=== PATIENT | female | born 1995 | race Caucasian/White ===

== ENCOUNTER 2017-11-19 06:03 | Inpatient (IN) ==
[2017-11-19] MEDS ORDERED: Famotidine 20 MG/2 ML VIAL IVP PRN (06:10)
[2017-11-19] MEDS ORDERED: Metoclopramide 10 MG/2 ML VIAL IVP PRN ×2 (06:10→11:18)
[2017-11-19] MEDS ORDERED: Naloxone 0.4 MG/ML INJ IVP PRN (06:10)
[2017-11-19] MEDS ORDERED: Ringers Solution, Lactated 1,000 ML IVC SCH ×2 (06:15→08:15)
[2017-11-19 06:41] LABS: Basophils % 0.3 %; Eosinophils # 0.1 K/mcL (0.0-0.6); Eosinophils % 0.5 %; Hemoglobin 11.8 g/dL (11.5-15.4); Lymphocytes # 2.1 K/mcL (0.6-4.6); Lymphocytes % 18.1 %; Mean Corpuscular HGB Conc 32.8 g/dL (31.6-35.5); Mean Corpuscular Hemoglobin 26.8 pg (28.0-33.3); Mean Corpuscular Volume 81.8 fL (83.0-100.0); Mean Platelet Volume 9.3 fL (9.4-12.4); Monocytes # 0.7 K/mcL (0.0-1.3); Monocytes % 5.5 %; Neutrophils # 8.8 K/mcL (1.6-8.9); Platelet Count 291 K/mcL (140-400); Segmented Neutrophils % 74.6 %
[2017-11-19] MEDS ORDERED: Oxytocin 20 units/ LR 1000 mL 20 UNIT/1,000 ML BAG IVC ONE (07:17)
[2017-11-19] MEDS ORDERED: *HR* FentaNYL (PF) 100 MCG/2 ML VIAL ONE (07:23)
[2017-11-19] MEDS ORDERED: Morphine Sulfate/PF 5mg/10mL Vial ONE (07:23)
[2017-11-19] MEDS ORDERED: EPHEDrine 50 MG/ML VIAL ONE (07:23)
[2017-11-19] MEDS ORDERED: Ondansetron 4 MG/2 ML VIAL ONE (07:24)
[2017-11-19] MEDS ORDERED: *HR* Oxytocin 10 UNIT/ML VIAL IM ONE (07:24)
[2017-11-19] MEDS ORDERED: Water for inj. (sterile) 10 ML IV ONE (07:25)
--- NOTE | 2017-11-19 07:27 | OB/GYN History & Physical ---
Date of Encounter: 11/19/17 Time of Encounter: 07:24 Assessment and Plan (1) with 39 completed weeks gestation Current visit: Yes Status: Chronic (2) Status post delivery Current visit: Yes Status: Acute Risks, benefits, and alternatives of repeat . Informed consent was obtained in the office last week. She has no followup questions today. History of Present Illness Chief complaint: patient is here for repeat section HPI: Ms. Harris is a 22 year old female G2 P 1-0-0-1 at 39 2/7 weeks presents for repeat section. She denies any contractions, vaginal bleeding or leaking fluid. She reports good movements this weekend. Her has been uncomplicated. Her first was done for failure to progress and category 2 FHR tracing. Past Med Surg Social Fam HX - Past Medical History Source: patient Medical history: migraine Psychiatric history: no psych history - Past Surgical History Surgical History: breast surgery (benign fibroadenoma removed), Additional surgical history: tumor left breast 2009 - Social History Smoking Status: Never smoker Smokeless Tobacco Status: No Alcohol use: none Drug use: none - Family History Father Family Member Ethnicity: Non- Living Status: Still Living Hx Family Medical Disorders: Yes (HTN) Mother Family Member Ethnicity: Non- Living Status: Still Living Hx Family Cardiac Disorders: No Hx Family Respiratory Disorders: No Hx Family Cancer: No Hx Family GI Disorders: No Hx Family Endocrine Disorder: No Hx Family Neuromuscular Disorders: No Hx Family Neurologic Disorders: No Hx Family HEENT Disorders: No Hx Family Autoimmune Disorders: No Obstetrical History - Pregnancies : 2 Para: 1 Livin Medications and Allergies Folic Acid 1 tab PO DAILY 11/19/17 [History] 3 Allergy/AdvReac Type Severity Reaction Status Date / Time No Known Allergies Allergy Verified 11/19/17 06:59 Review of System OB All systems PM: reviewed and no additional remarkable complaints except as stated Exam - Vital Signs Vital signs: Initial Vital Signs Temp Pulse Resp BP 98.8 F 98 16 119/70 11/19/17 06:40 11/19/17 06:40 11/19/17 06:40 11/19/17 06:40 - Constitutional Constitutional: well developed, well nourished, no acute distress, average body habitus - HEENT HEENT: EOMI - Lungs Respiratory exam: CTAB - Cardiovascular Cardiovascular exam: RRR - Abdomen Abdomen: Present: bowel sounds normal, gravid, non tender Results Result Diagrams: 11/19/17 06:12 Abnormal lab results WBC 11.8 K/mcL (4.3-11.1) H 11/19/17 06:12 MCV 81.8 fL (83.0-100.0) L 11/19/17 06:12 MCH 26.8 pg (28.0-33.3) L 11/19/17 06:12 RDW 15.0 % (11.5-14.5) H 11/19/17 06:12 MPV 9.3 fL (9.4-12.4) L 11/19/17 06:12 All other labs normal.
[2017-11-19] MEDS ORDERED: Lidocaine -MPF 1% 5 ML AMPUL ONE (07:41)
--- NOTE | 2017-11-19 07:48 | Anesthesia Evaluation PreOp ---
Date of Encounter: 11/19/17 Time of Encounter: 07:46 - Past History Planned Operation: Repeat C/S Cardiac History: Denies any Significant Hx Pulmonary History: Denies Any Significant HX AVIATION CONSULTANT History: Denies Any Significant HX Other Medical History: Denies Any Significant HX Anesthesia History: No Prior Anesthetic Complications, Past Anesthesia : Yes Alcohol Use: none Drug use: none Medications and Allergies Folic Acid 1 tab PO DAILY 11/19/17 [History] 3 Allergy/AdvReac Type Severity Reaction Status Date / Time No Known Allergies Allergy Verified 11/19/17 06:59 - Meds/Allergy Pre-op Review Medications Reviewed: Yes Allergies Reviewed: Yes Beta Blockers on Current Med List: No Anesthesia Results - Labs 11/19/17 06:12 Anesthesia Exam O2 Sat Height 1.65 m Weight 89.993 kg Vital Signs Temp Pulse Resp BP 98.8 F 98 16 119/70 11/19/17 06:40 11/19/17 06:40 11/19/17 06:40 11/19/17 06:40 NPO (# of Hours): 8 Pain Scale: 0 Pain Scale Used: Numeric (1 - 10) - HEENT Pupil (Motor): Pupils equal - AVIATION CONSULTANT LOC: Oriented AVIATION CONSULTANT Motor: Normal RUE, Normal LUE, Normal RLE, Normal LLE, Normal Face AVIATION CONSULTANT Sensory: Normal: RUE, LUE, RLE, LLE, Face - Cardiac Rhythm: Regular Murmur: None JVD: No Carotid Bruit: No - Pulmonary Breath Sounds: bilateral Clear Respiratory Effort: Symmetrical Anesthesia Assess/Plan ASA Score: 2 Modified [place] Scale for Level of Consciousness: Cooperative, oriented, and tranquil Anesthetic Plan: Regional Autologous Blood: Yes Monitoring Plan: Standard Monitors Recovery Plan: PACU
[2017-11-19 08:05] LABS: Amphetamine Screen,Urine Negative ng/mL (Cutoff=1000); Barbiturate Screen,Urine Negative ng/mL (Cutoff=200); Benzodiazepines Screen,Urine Negative ng/mL (Cutoff=200); Cannabinoid Screen,Urine Negative ng/mL (Cutoff = 50); Cocaine Screen,Urine Negative ng/mL (Cutoff= 300); Opiate Screen,Urine Negative ng/mL (Cutoff=300); Phencyclidine Screen,Urine Negative ng/mL (Cutoff=25)
[2017-11-19] MEDS ORDERED: Ondansetron 4 MG/2 ML VIAL IVP ONE (08:06)
[2017-11-19] MEDS ORDERED: *HR* HYDROmorphone 2 MG TABLET PO PRN (08:06)
[2017-11-19] MEDS ORDERED: *HR* OxyCODONE Immed Rel 5 MG TABLET PO PRN (08:06)
[2017-11-19] MEDS ORDERED: Acetaminophen IV 1,000 MG/100 ML INFUS..BTL IVPB ONE (08:06)
[2017-11-19] MEDS ORDERED: *HR* Promethazine 25 MG/ML VIAL IVP PRN (08:06)
--- NOTE | 2017-11-19 09:03 | OB/GYN Procedure Note ---
Section - Date of procedure: 11/19/17 Preop diagnosis: desires repeat Post-op diagnosis: same Procedure: section, repeat low transverse Surgeon: Pina Spears Blood Loss: 500 Was there an bookkeeper assistant present: Yes Shipper: Melanie Matson Case Assembler: Jose Elias Morrell Anesthesia Type: Spinal section complications: none Disposition: L&D Recovery Room Specimens: Placenta (hold), Cord blood - (s) A Infant Delivery Date: 11/19/17 Delivery Time: 08:17 Presentation: vertex Position: RODGER Gender: Female Viability: Viable Pounds: 7 Ounces: 11 Gram Weight: 3.485 kg at 1 minute: 9 at 5 minutes: 9 Shoulder Dystocia: not encountered Specimens collected: cord blood Placenta: spontaneous Cord: nuchal cord, 3 umbilical vessels, nuchal reduced - Narrative Narrative: Patient was taken to the operative suite and placed under spinal anesthetic. She was then prepped and draped in normal sterile fashion in the dorsal supine position. Timeout was then performed. Antibiotics were given at room time. SCDs are on and active. Pfannenstiel skin incision is made thru the prior scar and carried through to underlying layer of fascia with the Bovie. The fascia was then incised in the midline and incision extended laterally with the Hitchcock scissors. The fascia was tented up and dissected off the rectus muscles sharply. The rectus muscles were in the midline and the peritoneum was tented up and entered sharply with the Metzenbaum scissors. The peritoneal incision was then extended bluntly. The bladder blade was then inserted and the vesicouterine peritoneum was entered sharply. Bladder flap was created digitally. A very thin lower uterine segment was noted. A low transverse uterine incision was then made. The vertex was brought to the incision and the was delivered using fundal pressure. There was a loose nuchal cord that was reduced. Cord was clamped and cut. was handed to waiting nursery staff. Placenta delivered spontaneously complete and intact with a three-vessel cord. The uterus was cleared of all clots and debris using moist laparotomy sponge. The uterine incision was then closed using 0 Vicryl in a running locked fashion. A second layer of the same suture was used to obtain excellent hemostasis. A running locking suture of 4-0 Vicryl and then again 0 Vicryl was done at the midline to obtain hemostasis. The abdomen was then cleared of all clots and debris using copious irrigation. The fascial incision was then closed using 0 Vicryl in a running fashion. The skin was closed using 4-0 Vicryl in a subcuticular fashion. Steri-Strips and sterile dressing are then placed. Mother and taken to recovery in stable condition.
[2017-11-19] MEDS ORDERED: OXYCODONE Oral CONC 10 MG/0.5 ML ORAL.SYG SL PRN (10:05)
--- NOTE | 2017-11-19 10:05 | Anesthesia Evaluation Post Op ---
Date of Encounter: 11/19/17 Time of Encounter: 10:04 - Vital Signs Vital Signs: Vital Signs/O2 Sat/Glucose, Most Current Temp Pulse Resp BP 11/19/17 06:40 98.8 F 98 16 119/70 Vital Signs/O2 Sat, Most Current Temp Pulse Resp BP 98.8 F 98 16 119/70 11/19/17 06:40 11/19/17 06:40 11/19/17 06:40 11/19/17 06:40 - Lungs Lungs: Clear Ascult./Percussion - Airway Airway: Non-obstructed - Cardiovascular Regular Rate, Baseline Rhythm - Mental Status Mental Status: Alert & Oriented, Answers Appropriately - Pain Pain Scale: 0 Pain Scale used: Numeric (1 - 10) - Nausea Vomiting Nausea Vomiting: Not Present - Hydration Hydration: Tolerates oral liquids, Canales catheter - Discharge PostOp Status: Transfer Patient to floor
[2017-11-19] MEDS ORDERED: Prenatal Vit/FA 1 EACH TABLET PO SCH (11:18)
[2017-11-19] MEDS ORDERED: Ondansetron 4 MG/2 ML VIAL IVP PRN (11:18)
[2017-11-19] MEDS ORDERED: Sennosides 8.6 MG TABLET PO PRN (11:18)
[2017-11-19] MEDS ORDERED: *HR* OxyCODONE/APAP 5/325 TABLET PO PRN (11:18)
[2017-11-19] MEDS ORDERED: Acetaminophen 325 MG TABLET PO PRN (11:18)
[2017-11-19] MEDS ORDERED: Oxytocin 20 units/ LR 1000 mL 20 UNIT/1,000 ML BAG IVC SCH (11:18)
[2017-11-19] MEDS ORDERED: Simethicone 80 MG TAB.CHEW PO PRN (11:18)
[2017-11-19] MEDS: Ibuprofen 600 MG TABLET PO PRN (20:29)
[2017-11-20] MEDS ORDERED: Acetaminophen 325 MG TABLET PO PRN (00:20)
--- NOTE | 2017-11-20 08:12 | OB/GYN Progress Note ---
Date of Encounter: 11/20/17 Time of Encounter: 08:10 - Assessment and Plan (1) Status post repeat low transverse section Current Visit: Yes Status: Acute Continue postop/ care anticipate discharge home tomorrow (2) Breast feeding status of mother Current Visit: Yes Status: Acute support prn Subjective - Subjective Principal diagnosis: Postop/ day 1 repeat Interval history: Patient is postop day 1 for repeat c/s. Patient is doing well. Patient denies any pain at this time. Patient tolerating regular diet. Patient reports: appetite normal, voiding normally, pain well controlled, ambulating normally : doing well, nursing well Objective - Vital Signs Latest vital signs: Vital Signs Temp Pulse Resp BP Pulse Ox 11/20/17 07:34 98.2 F 76 20 94/64 11/20/17 03:26 98.1 F 66 14 92/55 98 11/20/17 00:15 98.1 F 70 16 100/53 97 11/19/17 22:00 98.1 F 84 16 95/55 97 11/19/17 19:45 97.9 F 105 16 93/59 97 11/19/17 16:29 98.1 F 105 20 105/68 11/19/17 14:10 98.2 F 103 20 128/70 11/19/17 13:10 98.3 F 101 20 117/68 98 11/19/17 12:32 98.4 F 90 20 113/69 97 11/19/17 11:40 98.2 F 96 20 110/61 98 11/19/17 11:10 97.7 F 84 16 109/69 98 Intake and Output 11/19/17 11/20/17 11/20/17 23:59 07:59 15:59 Intake Total 540 / 540 Output Total 250 / 250 500 / 500 Balance 290 / 290 -500 / -500 Intake: Oral 540 / 540 Output: Urine 500 / 500 Catheter 250 / 250 Other: Meal Dinner Percent of Meal Consumed 100% Weight 87.589 kg Patient Weight 11/20/17 23:59 Weight 87.589 kg - Exam Lungs: bilateral: normal Chest: Normal S1, Normal S2 Extremities: Present: normal Abdomen: Present: normal appearance, soft Incision: Present: normal, dry, intact, dressed (medipore dressing) Uterus: Present: normal, firm Fundal Height: 2 (U/2) - Labs Labs: Laboratory Results - last 24 hr 11/19/17 10:12 Hep Bs Antigen Nonreactive
[2017-11-20] MEDS: Ibuprofen 600 MG TABLET PO PRN (08:32)
--- NOTE | 2017-11-20 13:01 | Discharge Summary ---
Date of Encounter: 11/20/17 Time of Encounter: 12:58 - Discharge Diagnosis (1) Status post repeat low transverse section Priority: Primary Status: Acute Comments: Continue routine Postop/ care discharge home today per patient request (2) Breast feeding status of mother Priority: Secondary Status: Acute Comments: support prn - Discharge Medications Prescriptions: OxyCODONE/APAP 5/325 [Percocet 5/325 MG] 1 each PO Q4HR PRN 5 Days #30 tablet PRN Reason: Moderate pain 4-6 Ibuprofen [Motrin] 600 mg PO Q6HR PRN #60 tablet PRN Reason: Cramping Breast Pump [BREAST PUMP] 1 each .ROUTE AD #1 each Home Medications: Breast Pump [BREAST PUMP] 1 each .ROUTE AD #1 each 11/20/17 [Rx] Docusate [Colace] 100 mg PO BID capsule 11/20/17 [Rx] Ibuprofen [Motrin] 600 mg PO Q6HR PRN #60 tablet 11/20/17 [Rx] OxyCODONE/APAP 5/325 [Percocet 5/325 MG] 1 each PO Q4HR PRN 5 Days #30 tablet [Rx] Vit/FA 1 each PO DAILY tablet 11/20/17 [Rx] Simethicone [Gas-X] 80 mg PO TID PRN tab.chew 11/20/17 [Rx] Allergies/Adverse Reactions: 3 Allergy/AdvReac Type Severity Reaction Status Date / Time No Known Allergies Allergy Verified 11/19/17 06:59 Data Procedures and tests throughout hospitalization: Laboratory Tests 11/19/17 11/19/17 11/19/17 06:10 06:12 06:26 WBC 11.8 H RBC 4.40 Hgb 11.8 Hct 36.0 MCV 81.8 L MCH 26.8 L MCHC 32.8 RDW 15.0 H Plt Count 291 MPV 9.3 L Immature Gran % 1.0 Seg Neutrophils % 74.6 Lymphocytes % 18.1 Monocytes % 5.5 Eosinophils % 0.5 Basophils % 0.3 Neutrophils # 8.8 Lymphocytes # 2.1 Monocytes # 0.7 Eosinophils # 0.1 Basophils # 0.0 Urine Opiates Screen Negative Ur Barbiturates Screen Negative Ur Phencyclidine Scrn Negative Ur Amphetamines Screen Negative U Benzodiazepines Scrn Negative Urine Cocaine Screen Negative U Marijuana (THC) Screen Negative Hep Bs Antigen Blood Type O POSITIVE Antibody Screen NEGATIVE 11/19/17 10:12 WBC RBC Hgb Hct MCV MCH MCHC RDW Plt Count MPV Immature Gran % Seg Neutrophils % Lymphocytes % Monocytes % Eosinophils % Basophils % Neutrophils # Lymphocytes # Monocytes # Eosinophils # Basophils # Urine Opiates Screen Ur Barbiturates Screen Ur Phencyclidine Scrn Ur Amphetamines Screen U Benzodiazepines Scrn Urine Cocaine Screen U Marijuana (THC) Screen Hep Bs Antigen Nonreactive Blood Type Antibody Screen Date of admission: 11/19/17 06:03 Primary care physician: PCP NONE Discharging clinician: Beverly Villa Anticipated date of discharge: 11/20/17 - Patient Status Disposition: Home, Self-Care Condition: Good Functional capacity at discharge: independent ambulation - Discharge Instructions Follow Up With: NONE,PCP [Primary Care Provider] - Pina Yeh DO [Partnered Physician] - - Diet and Activity Activity: increase activity as tolerated Diet: regular diet Hospital Course Procedures: Oarrs report reviewed prior to discharge by SHASHANK Teixeira Reason for admission: section Delivery: section Episiotomy: none Laceration: none complications: none Discharge diagnosis: IUP at term delivered [place] baby: female (breast feeding) Time Attestation: Total time spent providing and/or coordinating discharge services: Time Spent: Less than 30 minutes - VTE Documentation of Mechanical Device: Intermittent pneumatic compression device Exam - Constitutional Vitals: Temp Pulse Resp BP Pulse Ox 98.2 F 76 20 94/64 98 11/20/17 07:34 11/20/17 07:34 11/20/17 07:34 11/20/17 07:34 11/20/17 03:26 General appearance IM: A&O X 3, pleasant, answers questions appropriately - Uterine Tone: Firm Uterus Position: 2 Fingers Below Umbilicus, Midline - Extremities Exam Extremities exam IM: Present: full ROM, normal capillary refill, normal inspection
[2017-11-21 08:15] VITALS: BP 116/72
== END 2017-11-20 14:53 | disposition home or self-care (01) | DRG 766 ==
LOC: 1NENULAB 06:03 → 1NENUOBS 11:16
PROVIDERS: ADMIT Obstetrics & Gynecology; ATTEND Obstetrics & Gynecology